=== PATIENT | male | born 1970 | race African-American/Black ===

== ENCOUNTER 2017-04-19 15:18 | Inpatient (IN) | payer OTHER ==
[~2017-04-19] VITALS: Ht 177.8 cm; Wt 81.6 kg
[~2017-04-19 15:18] MED LIST: FOL1 PO; HCTZ/LISINOPRIL1 TA1 PO; K-PHOS NEUTRAL1 TAB PO; MAGNESIUM OXID400 MG PO; METFORMIN HCL1000 MG PO; METOPROLOL TART25 M1 PO; NEU300 PO; NOR10T PO; ROC25 PO; SOD650 PO; THI100 PO
[2017-04-19 16:37] LABS: BILIRUBIN TOTAL 0.38 mg/dL (0.20-1.00); CALCIUM 8.2 mg/dL (8.5-10.1); CARBON DIOXIDE 33.5 mmol/L (21-32); POTASSIUM SERUM 3.8 mmol/L (3.5-5.1); TOTAL PROTEIN, SERUM 6.9 g/dL (6.4-8.2)
[2017-04-19 16:39] LABS: BASOPHIL % 0.2 % (0-2)
[2017-04-19 16:45] LABS: RED CELL DISTRIBUTION WIDTH 13.8 % (11.5-14.5)
[2017-04-19 16:57] LABS: PLATELET COUNT 56 x10^3mcL (130-400)
[2017-04-19 17:47] LABS: MAGNESIUM 1.7 mg/dL (1.8-2.4); PHOSPHOROUS 3.1 mg/dL (2.5-4.9)
[2017-04-19 17:57] LABS: T3 TOTAL 1.16 ng/mL
[2017-04-19 17:58] LABS: FREE T4 1.16 ng/dL (0.76-1.46); FREE THYROXINE INDEX 3.2 ug/dL (1.4-4.5); T4(THYROXINE) 9.5 ug/dL (4.7-13.3)
[2017-04-19 18:32] VITALS: BP 135/86
[2017-04-19 19:33] VITALS: Ht 177.8 cm; Wt 81.6 kg
[2017-04-19] MEDS ORDERED: FUROSEMIDE40 MG PO (19:38)
[2017-04-19] MEDS ORDERED: METOPROLOL TART50 MG PO (19:39)
[2017-04-19] MEDS ORDERED: NOR5 PO (19:50)
[2017-04-19] MEDS ORDERED: HYDRALAZINE HCL50 MG PO (19:53)
[2017-04-19] MEDS ORDERED: FERROUS SULFAT325 M2 PO (19:54)
[2017-04-19] MEDS ORDERED: CATAPRES0.1 MG PO (19:55)
[2017-04-19 21:07] VITALS: BP 121/79
[2017-04-19 21:43] LABS: CHOLESTEROL/HDL RATIO 2.7
[2017-04-20] VITALS (7 sets, daily range): BP systolic 109–140; BP diastolic 69–83
[2017-04-20 00:12] LABS: BASOPHIL % 0.4 % (0-2); RED CELL DISTRIBUTION WIDTH 13.9 % (11.5-14.5)
[2017-04-20 00:21] LABS: PLATELET COUNT 11 x10^3mcL (130-400)
[2017-04-20 04:07] LABS: microscopic required? YES; urine erythrocyte TRACE (NEGATIVE)
[2017-04-20 08:58] LABS: BASOPHIL % 0.8 % (0-2); CALCIUM 8.2 mg/dL (8.5-10.1); CARBON DIOXIDE 33.4 mmol/L (21-32); MAGNESIUM 1.9 mg/dL (1.8-2.4); PHOSPHOROUS 4.6 mg/dL (2.5-4.9); POTASSIUM SERUM 3.8 mmol/L (3.5-5.1); RED CELL DISTRIBUTION WIDTH 13.3 % (11.5-14.5)
[2017-04-20 11:27] LABS: PLATELET COUNT 132 x10^3mcL (130-400)
[2017-04-20 16:18] LABS: BASOPHIL % 0.5 % (0-2); RED CELL DISTRIBUTION WIDTH 13.7 % (11.5-14.5)
[2017-04-20 16:19] LABS: PLATELET COUNT 88 x10^3mcL (130-400)
== END 2017-04-20 19:10 | disposition home or self-care (01) | DRG 206 ==
LOC: ED 15:18 → DU 17:11
PROVIDERS: Emergency Medicine; ADMIT Family Medicine
PROC: 30233R1 Transfusion of Nonautologous Platelets into Peripheral Vein, Percutaneous Approach (ICD-10-PCS; principal; 2017-04-20)
DX: T82.838A Hemorrhage due to vascular prosthetic devices, implants and grafts, initial encounter (principal); N17.0 Acute kidney failure with tubular necrosis; I12.0 Hypertensive chronic kidney disease with stage 5 chronic kidney disease or end stage renal disease; N18.6 End stage renal disease; E44.0 Moderate protein-calorie malnutrition; D69.6 Thrombocytopenia, unspecified; E11.22 Type 2 diabetes mellitus with diabetic chronic kidney disease; D62 Acute posthemorrhagic anemia; E83.42 Hypomagnesemia; E87.8 Other disorders of electrolyte and fluid balance, not elsewhere classified; Z68.28 Body mass index [BMI] 28.0-28.9, adult; Z99.2 Dependence on renal dialysis; Z83.3 Family history of diabetes mellitus; Z82.49 Family history of ischemic heart disease and other diseases of the circulatory system; Z89.429 Acquired absence of other toe(s), unspecified side
CPT/HCPCS: 83880; 84439; J2001; J7030; J7040; J7050; P9035; Q0092; Q0163

== ENCOUNTER 2019-02-01 14:23 | Emergency (ER) | payer OTHER ==
[~2019-02-01] VITALS: Ht 177.8 cm; Wt 101.2 kg
[~2019-02-01 14:23] MED LIST changes: +CATAPRES0.1 MG PO; +FERROUS SULFAT325 M2 PO; +FUROSEMIDE40 MG PO; +HYDRALAZINE HCL50 MG PO; +METOPROLOL TART50 MG PO; +NOR5 PO
[2019-02-01 17:55] VITALS: BP 131/94
== END 2019-02-01 20:20 | disposition home or self-care (01) ==
LOC: ED 14:23
DX: S20.212A Contusion of left front wall of thorax, initial encounter (principal); I10 Essential (primary) hypertension; E11.9 Type 2 diabetes mellitus without complications; Z88.8 Allergy status to other drugs, medicaments and biological substances; W10.8XXA Fall (on) (from) other stairs and steps, initial encounter; Y93.89 Activity, other specified; Y92.89 Other specified places as the place of occurrence of the external cause; Y99.8 Other external cause status